=== PATIENT | female | born 1950 | race Caucasian/White ===

== ENCOUNTER 2016-06-03 11:37 | Inpatient (IN) | payer OTHER ==
--- NOTE | 2016-05-23 15:34 | RAD ---
INDICATION: Preoperative imaging in a patient with a history of asthma COMPARISON: Chest x-ray dated August 28, 2003 TECHNIQUE: PA and lateral views of the chest were obtained. FINDINGS: The heart and mediastinum are normal in size and contour. The lungs are grossly clear. There is no evidence of large pleural effusion. Visualized bones are normal for the patient's age. There is no radiographic evidence of free air beneath the diaphragm IMPRESSION: No radiographic evidence of acute cardiopulmonary disease.
--- NOTE | 2016-05-26 00:27 | HP ---
HISTORY AND PHYSICAL: DATE OF SURGERY/ADMISSION: 06/03/16 DATE OF OFFICE VISIT: 05/23/16 ATTENDING SURGEON: Ivanna Landrum MD PROCEDURE: Left total knee arthroplasty. CHIEF COMPLAINT: Left knee pain. HISTORY OF PRESENT ILLNESS: A pleasant 66-year-old female who presents today for history and physical examination prior to undergoing a left knee arthroplasty. In brief, the patient states that she has had pain in her bilateral knees, left worse than right for several years. She has failed conservative treatment including anti-inflammatories, pain medications, steroid injections, physical therapy, and brace wear, has elected to undergo a left total knee arthroplasty by Dr. Ivanna Landrum on 06/03/16. PAST MEDICAL HISTORY: 1. Rotator cuff repair on the right. 2. Foot fracture. 3. Chronic back pain with herniated disk. 4. Insomnia. 5. Depression. 6. Obesity. 7. History of varicose veins. 8. Asthma. PAST SURGICAL HISTORY: 1. Rotator cuff repair. 2. Bilateral knee arthroplasty. 3. Vein stripping on the right leg. 4. Hand surgery, unspecified type. MEDICATIONS: 1. Gabapentin 300 mg 1 tablet by mouth 3 times a day. 2. Ambien 12.5 mg 1 tablet q.h.s. as needed. 3. Pristiq 50 mg 1 tablet by mouth daily. 4. Bupropion ER. ALLERGIES: No known drug allergies. FAMILY MEDICAL HISTORY: Positive for colon cancer, diabetes, and hypertension. SOCIAL HISTORY: The patient owns . Denies tobacco, alcohol, and recreational use. Ambulates independently. Lives with [id number] and grandson. REVIEW OF SYSTEMS: General: Negative for fevers, chills, or night sweats. Difficulty with anesthesia in the past, extreme nausea and vomiting. HEENT: Negative for headache, lightheadedness, or syncopal episodes. Integument: Negative for abrasions, lesions, open wounds. Cardiothoracic: Negative for chest pain, palpitations, or edema. No history of hypertension. Pulmonary: Negative for shortness of breath with exertion, chronic cough, or COPD. History of asthma. No recent excerebration. GI: Negative for nausea, vomiting , constipation, diarrhea, or GERD. : Negative for nocturia, urinary frequency, urgency, kidney problems, or UTI. Musculoskeletal: Positive for bilateral knee pain, left worse than right. Positive for chronic lower back pain. Neurologic: Positive for paresthesias in the left ankle. Negative for stroke, seizure, or epilepsy. Endocrine: Negative for diabetes or thyroid disease. Hematologic: Negative for easy bruising, anemia, or excessive bleeding. No history of DVT. Infectious Disease: No history of MRSA, hepatitis C, or HIV. PHYSICAL EXAMINATION GENERAL: Well appearing, in no acute distress, alert and oriented, 66-year-old female, in no acute distress. VITAL SIGNS: Blood pressure 138/82, pulse rate 85, respirations are 15. HEENT: Normocephalic, atraumatic. EOMI. NECK: Supple. Full range of motion. CARDIAC: Regular rate and rhythm. No murmurs, gallops, or rubs. PULMONARY: Lungs are clear to auscultation bilaterally. No crackles, rhonchi, or wheezes. ABDOMEN: Soft, nontender, nondistended, normoactive bowel sounds. No organomegaly. Negative CVA tenderness bilaterally. NEUROLOGIC: Alert and oriented x3. Cranial nerves are grossly intact. Sensation intact to light touch over bilateral calves. MUSCULOSKELETAL: Left knee with decreased range of motion to 110 degrees. Antalgic gait favoring the left side. Posterior and tibial pulses 2+ bilaterally. No edema noted in bilateral lower extremities. No open wounds or sores. DIAGNOSTIC STUDIES/LAB DATA: X-ray of bilateral knees performed on 04/16/16 showed moderate degenerative changes of bilateral knees, more advanced on the right than the left. IMPRESSION: The patient is a very pleasant 66-year-old female, who presents today for history and physical examination prior to undergoing an elective left knee arthroplasty. The patient underwent preoperative testing by Dr. Torres at [place] on 05/22/16. I do not have records for this, but the patient states that she was seen and was cleared for surgery. She will have labs, chest x-ray , urinalysis, and EKG performed today as the preadmission testing. The patient wishes to go home after her procedure and have a good support system with her [id number] at home. Medications for postoperative pain including Coumadin , Tylenol No. 3, and Colace were sent to the patient's pharmacy and the surgery was reviewed as well as the risks and complications and the patient signed the surgical consent form. She had no further questions or concerns; however, will call us if any do arise. JEROME ANDUJAR [id number]/[facility] #: [id number] KARO
[~2016-06-03 11:37] MED LIST: Buffered Lidocaine 1% SYR 3ML* 3 ML/SYR SYRINGE INTRADERM ONE; Bupivacaine 0.5% SDV PF* 30 ML VIAL ONE; Dexamethasone IV* 4 MG/ML 1 ML (4 MG) IV SLOW PU ONE; Dexmedetomidine* 200 MCG/2 ML 2 ML VIAL ONE; Famotidine IV* 10 MG/ML 2 ML (20 mg) IV ONE; Midazolam* 1 MG/ML 5 ML VIAL (5 MG) ONE; Morphine PF AMP (0.5MG/ML)* 5 MG/10 ML AMP ONE; Propofol* 10 MG/ML 20 ML BTL IV PUSH ONE; ROPIVACAINE 5 MG/ML 30 ML BTL (0.5%) ONE; fentaNYL* 50 MCG/ML 2 ML VIAL (100 MCG VIAL) ONE
[2016-06-03] MEDS ORDERED: Famotidine IV* 10 MG/ML 2 ML (20 mg) ONE (11:56)
[2016-06-03] MEDS ORDERED: ceFAZolin 2 GM PREMIX (*) 2 GM/50 ML BAG IVPB ONE (11:57)
[2016-06-03] MEDS ORDERED: Buffered Lidocaine 1% SYR 3ML* 3 ML/SYR SYRINGE ONE (11:57)
[2016-06-03] MEDS ORDERED: Dexamethasone IV* 4 MG/ML 1 ML (4 MG) ONE (11:57)
[2016-06-03] MEDS ORDERED: Ondansetron INJ* 2 MG/ML VIAL IV PRN ×2 (12:32→16:45)
[2016-06-03] MEDS ORDERED: Nalbuphine* 20 MG/ML 1 ML VIAL IV PRN ×2 (12:32→16:45)
[2016-06-03] MEDS ORDERED: PROCHLORPERAZINE INJ 5 MG/ML 2 ML VIAL IV PRN ×2 (12:32→16:45)
[2016-06-03] MEDS ORDERED: fentaNYL* 50 MCG/ML 2 ML VIAL (100 MCG VIAL) IV PRN (12:32)
[2016-06-03] MEDS ORDERED: DiMENhydriNATE IV* 50 MG/ML VIAL IV PUSH PRN ×2 (12:32→16:45)
[2016-06-03] MEDS ORDERED: Scopolamine 1.5 mg* PATCH ONE (12:36)
[2016-06-03] MEDS ORDERED: Bupivacaine 0.5% W/EPI SDV* 30 ML VIAL ONE (12:59)
[2016-06-03] MEDS ORDERED: Scopolamine PATCH Remove* 1 NOTE MISC PATCH OFF SCH (14:00)
[2016-06-03] MEDS ORDERED: Acetaminophen TAB* 325 MG PO PRN (15:53)
[2016-06-03] MEDS ORDERED: Magnesium Hydroxide LIQ* 30 ML UDC PO PRN (15:53)
[2016-06-03] MEDS ORDERED: Polyethylene Glycol 3350* 17 GM PACKET PO PRN (15:53)
[2016-06-03] MEDS ORDERED: Bisacodyl SUPP* 10 MG SUPP PR PRN (15:53)
[2016-06-03] MEDS ORDERED: Phenylephrine IV* 40 MCG/ML 10 ML SYRINGE ONE (16:32)
[2016-06-03] MEDS ORDERED: diPHENhydraMINE IV* 50 MG/ML 1 ml VIAL (BENADRYL) IV PRN (16:45)
[2016-06-03] MEDS ORDERED: Naloxone* 0.4 MG/ML 1 ML VIAL IV PRN (16:45)
--- NOTE | 2016-06-03 17:06 | RAD ---
INDICATION: Left knee arthroplasty COMPARISON: April 16, 2016 TECHNIQUE: A portable 2 view examination was performed. FINDINGS: There is left knee arthroplasty. Tibial and femoral components appear well seated. There is a cooling jacket in place. IMPRESSION: POSTOPERATIVE LEFT KNEE ARTHROPLASTY
[2016-06-03] MEDS ORDERED: Nalbuphine* 20 MG/ML 1 ML VIAL ONE (18:53)
[2016-06-03] MEDS: Docusate CAP* 100 MG PO SCH (20:31)
[2016-06-03] MEDS: Gabapentin CAP(*) 300 MG PO SCH (20:32)
[2016-06-03] MEDS: Scopolamine 1.5 mg* PATCH TRANSDERM SCH (20:33)
[2016-06-03] MEDS: ceFAZolin 1 GM in Dextrose (*) 1 GM/50 ML BAG IVPB SCH (20:37)
[2016-06-03] MEDS ORDERED: Warfarin TAB(*) 6 MG PO ONE (21:00)
[2016-06-03] MEDS: oxyCODONE/Acetamin 5/325 MG* TAB PO PRN ×2 (22:32→23:23)
[2016-06-04] MEDS: Zolpidem TAB* 5 MG PO SCH ×2 (00:44→23:30)
[2016-06-04] MEDS: oxyCODONE/Acetamin 5/325 MG* TAB PO PRN ×4 (03:29→19:23)
[2016-06-04] MEDS: ceFAZolin 1 GM in Dextrose (*) 1 GM/50 ML BAG IVPB SCH ×2 (04:55→13:03)
[2016-06-04] MEDS ORDERED: diPHENhydraMINE IV* 50 MG/ML 1 ml VIAL (BENADRYL) IV PRN (06:00)
[2016-06-04] MEDS ORDERED: oxyCODONE/Acetamin 5/325 MG* TAB PO PRN (06:00)
[2016-06-04] MEDS ORDERED: diPHENhydraMINE PO* 25 MG PO PRN (06:00)
[2016-06-04] MEDS ORDERED: Morphine INJ* 2 MG/ML 1 ML CARPUJECT IV PRN (06:00)
[2016-06-04] MEDS ORDERED: Ondansetron TAB* 4 MG PO PRN (06:00)
[2016-06-04] MEDS ORDERED: Ondansetron INJ* 2 MG/ML VIAL IV PRN (06:00)
[2016-06-04] MEDS ORDERED: oxyCODONE TAB* 5 MG TAB PO PRN (06:00)
[2016-06-04 06:14] LABS: Hematocrit 32 % (35-47); Hemoglobin 10.4 g/dl (12.0-16.0)
[2016-06-04 06:31] LABS: BUN/Creatinine Ratio 14.9 (8-20); EGFR Non-African American 88.6 (>60)
--- NOTE | 2016-06-04 07:06 | PN ---
Progress Note - Progress Note SOAP: Subjective: Pt. reports pain is controlled overnight. Objective: LLE - drain removed, tip intact, distally nvi with +df/pf, full sens lt, 2+ dp pulse. Vital Signs: Temp Pulse Resp BP Pulse Ox 97.6 F 62 18 98/55 100 06/04/16 03:41 06/04/16 03:41 06/04/16 05:45 06/04/16 03:41 06/04/16 03:41 Laboratory Results - last 24 hr 06/04/16 06/04/16 06/04/16 06:07 06:07 06:07 Hgb 10.4 L Hct 32 L INR (Anticoag Therapy) 1.01 Sodium 137 Potassium 4.0 Chloride 105 Carbon Dioxide 31 Anion Gap 1 L BUN 10 Creatinine 0.67 Est GFR ( Amer) 114.0 Est GFR (Non-Af Amer) 88.6 BUN/Creatinine Ratio 14.9 Glucose 112 H Calcium 8.0 L Assessment: 66 yo F pod 1 s/p LTKA Plan: wbat LLE - pt/ot drain removed stanley out this AM 8 mg coumadin tonight, cont. lovenox
[2016-06-04] MEDS: Vitamin THERAPEUTIC TAB PO SCH (08:16)
[2016-06-04] MEDS: Docusate CAP* 100 MG PO SCH ×2 (08:16→21:40)
[2016-06-04] MEDS ORDERED: Pneumococcal *Vac Polyvalent 0.5 ML VIAL IM ONE (09:00)
[2016-06-04] MEDS ORDERED: Influenza VAC *QUAD* 2016-17* 0.5 ML SYRINGE IM ONE (09:00)
--- NOTE | 2016-06-04 11:17 | OP ---
DATE OF OPERATION: 06/03/16 - ROOM #338 DATE OF : 54 SURGEON: Ivanna Landrum MD JIG OPERATOR: JEROME Ruiz ANESTHESIOLOGIST: Dr. Cheng. ANESTHESIA: Spinal. PRE-OP DIAGNOSIS: Severe end-stage degenerative osteoarthritis of the left knee joint. POST-OP DIAGNOSIS: Severe end-stage degenerative osteoarthritis of the left knee joint. OPERATIVE PROCEDURE: Left total knee arthroplasty. TOURNIQUET TIME: 50 minutes. ESTIMATED BLOOD LOSS: 200 cc. COMPLICATIONS: None. SPECIMENS: Bone and cartilage from the left knee joint sent to pathology. HARDWARE: [employer] cemented total knee hardware. Two packages of simplex bone cement. For the femur, a size 4 left posterior stabilized Legion Oxinium femoral component. For the tibia, a size 3 left tibial baseplate. For the insert, a 13 mm posterior stabilized articular insert. For the patella, a 35-mm 3-peg all- poly patella. BRIEF HISTORY/INDICATIONS: Ms. Schmidt is a 66-year-old female with years of increasingly severe left knee pain. Radiographs confirmed [id number]-[id number] arthritis. She failed conservative treatment with antiinflammatories, pain medications, intraarticular injections, and physical therapy. She elected to undergo a left total knee arthroplasty due to continued pain and decreased quality of life. Informed consent was obtained from the patient. She understands the risks of the procedure included, but were not limited to bleeding, infection, damage to nearby structures, continued pain, need for further surgery, intraoperative fracture, nerve palsy, hardware failure or loosening, stroke, heart attack, blood clot, and . She wished to proceed. INTRAOPERATIVE FINDINGS: Intraoperatively, the patient was noted to have severe degeneration of the medial, lateral, and patellofemoral cartilage. DESCRIPTION OF PROCEDURE: Ms. Schmidt was identified in the preanesthesia unit. Her left lower extremity was marked as the correct operative site. Informed consent was signed and placed in the chart. The patient was taken to the operating room and placed under spinal anesthesia without difficulty. A Henry catheter was placed. Thigh high tourniquet was placed on the left side. Left lower extremity was prepped and dapped in the usual sterile fashion. Preop time -out was made to correctly identify the patient side and site. Appropriate perioperative antibiotics were given within 1 hour of incision. A 12 cm midline incision was made with a skin blade and carried down to the extensor mechanism. A new 10 blade was used to make a standard medial parapatellar arthrotomy. Patella was subluxed laterally. Electrocautery was used to subperiosteally elevate the soft tissue off the superomedial tibia to the mid sagittal plane. The knee was flexed up. The anterior horn of the lateral meniscus and ACL were sharply released. A drill was used to enter the distal femur. Intramedullary distal femoral cutting guide was pinned on the distal femur. Oscillating saw was used to make the appropriate distal femoral cut. External rotation guide was pinned on the distal femur and the femur was sized to a size 4. Size 4 multi-cutting gig was pinned on the distal femur. Oscillating saw was used to make the appropriate 4 chamfer cuts. All bony fragments were carefully removed. The PCL was completely released. The tibia was subluxed anteriorly. Extramedullary tibial cutting guide was pinned on the proximal tibia. An oscillating saw was used to make the proximal tibial cut perpendicular to the mechanical access of the tibia. Proximal tibial bone was carefully removed. The knee was brought out into full extension. A spacer block had excellent fit with good mediolaterally ligamentous balancing. Flexion and extension gaps were well balanced. The knee was flexed up. Lamina heel edge inker machine was placed both medially and laterally. Any remaining meniscus were carefully removed using electrocautery. Posterior femoral condyles had any osteophytes removed carefully with curved osteotome and curette. Tibial tray and drop isiah once again confirmed satisfactory proximal tibial cut. A size 4 left femoral component trial was carefully impacted on to the distal femur. Box for the posterior stabilized implant was prepared using a reamer and box cut osteotome. A size 3 tibial tray trial and a 11 mm insert trial was placed. The knee was taken through range of motion and noted to have full extension to 130 degrees of flexion with good patello-femoral tracking. The patellar was everted. A 9 mm of patellar bone and cartilage were carefully removed. Patella was sized to a size 35. Three peg holes were drilled through the size 35 guide. 35 trial patella was placed and the knee was taken through a range of motion. There was excellent patellofemoral tracking. All trials were carefully removed. The tibia was subluxed anteriorly and sized to a size 3. Proximal tibia was prepared using a keel punch. All bony cut surfaces were copiously irrigated with sterile saline and dried. Final implants were cemented into place using 2 packages of simplex bone cement starting with the tibia, followed by the femur, and lastly the patellar. The knee was brought into full extension with a 13-mm insert trial while the cement fully cured. Tourniquet was turned down at 50 minutes. Once the cement had fully cured, the knee was copiously irrigated. The insert trial was removed. Posterior capsule was checked for any bleeding or excess cement. Final insert chosen was a 13-mm posterior stabilized articular insert. This was locked into position on the tibial tray without difficulty. Stability of the insert was checked and rechecked and noted to be stable. Final range of motion was full extension to 130 degrees of flexion. The knee was once again copiously irrigated with sterile saline. The extensor mechanism was closed over a medium Hemovac drain using interrupted #1 Vicryls. The rest of the incision was closed in a layered fashion using 0 and 2-0 Vicryls. Skin was closed using running 3-0 nylon suture. The skin was covered with Xeroform, 4x4's, and Webril. Luis Angel wrap and cold pack were placed over this. The patient's anesthesia was reversed without difficulty. She was taken to the PACU in stable condition. Intended weightbearing will be weightbearing as tolerated. Intended DVT prophylaxis will be Coumadin with a Lovenox bridge. [id number]/[facility] #: [id number] KARO
[2016-06-04] MEDS: oxyCODONE SR TAB(*) 20 MG TAB.SR PO SCH (16:27)
[2016-06-04] MEDS ORDERED: Warfarin TAB(*) 4 MG PO ONE (17:00)
[2016-06-04] MEDS: Enoxaparin(*) 30 MG/0.3 ML SYR SUBCUT SCH (17:48)
[2016-06-04] MEDS ORDERED: HYDROmorphone INJ* 1 MG/ML CARPUJECT SYRINGE ONE (19:35)
[2016-06-04] MEDS ORDERED: HYDROmorphone INJ* 1 MG/ML CARPUJECT SYRINGE IV PRN (19:54)
[2016-06-04] MEDS: Ketorolac INJ* 15 MG/ML 1 ML VIAL IV PUSH SCH (20:04)
[2016-06-04] MEDS: Gabapentin CAP(*) 300 MG PO SCH (21:39)
[2016-06-05] MEDS: Ketorolac INJ* 15 MG/ML 1 ML VIAL IV PUSH SCH ×3 (01:52→14:47)
[2016-06-05] MEDS: oxyCODONE SR TAB(*) 20 MG TAB.SR PO SCH ×2 (03:57→16:22)
[2016-06-05 06:47] LABS: Hematocrit 33 % (35-47); Hemoglobin 11.3 g/dl (12.0-16.0)
[2016-06-05] MEDS: oxyCODONE/Acetamin 5/325 MG* TAB PO PRN ×4 (07:25→23:45)
[2016-06-05] MEDS: Vitamin THERAPEUTIC TAB PO SCH (08:43)
[2016-06-05] MEDS: Docusate CAP* 100 MG PO SCH ×2 (08:43→21:33)
--- NOTE | 2016-06-05 09:15 | PN ---
Progress Note - Progress Note SOAP: Subjective: [Patient seen and evaluated at bedside. She reports having a "bad night" due to increased knee pain. Better this morning with Percocet and IV Torodol. Denies dizziness, chest pain or shortness of breath. ] Objective: [] Laboratory Results - last 24 hr 06/05/16 06/05/16 06:19 06:19 Hgb 11.3 L Hct 33 L INR (Anticoag Therapy) 1.30 H Vital Signs Temp 100.8 F 06/05/16 07:31 Pulse 104 06/05/16 07:31 Resp 17 06/05/16 07:31 BP 168/88 06/05/16 07:31 Pulse Ox 94 06/05/16 07:31 Intake & Output 06/04/16 06/05/16 06/05/16 18:59 06:59 18:59 Intake Total 1040 600 Output Total 1000 1100 700 Balance 40 -500 -700 Intake: Oral 1040 600 Output: Urine 700 1100 700 Henry 300 Other: # Bowel Movements 1 Estimated Stool Amount Small Left knee dressing intact, cryo applied calf non tender and soft active DF/PF sensation intact 2+ DP, PT pulses Assessment: [S/P Left total knee arthroplasty POD#2] Plan: [ Pain management continue PT/OT WBAT left knee 8 mg coumadin today Dressing to be changed this afternoon by Dr. Landrum Possible discharge home 06/06]
[2016-06-05 12:58] LABS: Hematocrit 34 % (35-47); Hemoglobin 11.2 g/dl (12.0-16.0); Mean Corpuscular HGB Conc 33 g/dl (31-36); Mean Corpuscular Hemoglobin 30 pg (27-31); Mean Corpuscular Volume 90 fL (80-97); Mean Platelet Volume 8 um3 (7.4-10.4); Red Cell Distribution Width 14 % (10.5-15); White Blood Count 10.8 10^3/ul (3.5-10.8)
[2016-06-05 12:59] LABS: Add Diff/Slide Review? Slide Review Added; Comments Flag Yes
--- NOTE | 2016-06-05 13:01 | PN ---
Progress Note - Progress Note Note: Patient seen due to elevated temperature to 101.8 despite being on Percocet. Patient without complaint other than being chilled. No SOB. On examination, crackles/ wheezing in LLL. CXR ordered, U/A. Follow up with results.
[2016-06-05 13:43] LABS: Urine Bilirubin Negative (Negative); Urine Glucose Negative (Negative); Urine Nitrite Negative (Negative)
--- NOTE | 2016-06-05 13:48 | RAD ---
INDICATION: Cough and fever COMPARISON: 05/23/2016 TECHNIQUE: AP seated and lateral views were obtained. FINDINGS: Bones/Soft Tissues: There are no acute bony findings. Cardiomediastinal: The cardiomediastinal silhouette is normal. Lungs: There are no infiltrates. Pleura: There are no pleural effusions. Other: None IMPRESSION: NO ACTIVE DISEASE
[2016-06-05] MEDS ORDERED: Warfarin TAB(*) 4 MG PO ONE (17:00)
[2016-06-05] MEDS: Enoxaparin(*) 30 MG/0.3 ML SYR SUBCUT SCH (17:19)
[2016-06-05] MEDS: Gabapentin CAP(*) 300 MG PO SCH (21:33)
[2016-06-06] MEDS: Zolpidem TAB* 5 MG PO SCH (00:30)
[2016-06-06] MEDS: oxyCODONE SR TAB(*) 20 MG TAB.SR PO SCH ×2 (04:07→16:27)
[2016-06-06 07:42] LABS: Hematocrit 34 % (35-47); Hemoglobin 11.2 g/dl (12.0-16.0)
[2016-06-06] MEDS: Docusate CAP* 100 MG PO SCH (08:25)
[2016-06-06] MEDS: Vitamin THERAPEUTIC TAB PO SCH (08:25)
--- NOTE | 2016-06-06 08:49 | PN ---
Progress Note - Progress Note SOAP: Subjective: POD #3 Left TKA. States that she is doing better today, had a lot of pain yesterday. Denies CP/SOB or calf pain. Objective: Vitals: Temp Pulse Resp BP Pulse Ox 100.2 F 109 16 131/75 96 06/06/16 07:43 06/06/16 07:43 06/06/16 07:43 06/06/16 07:43 06/06/16 07:43 Gen: A&O x3, NAD at rest laying in bed LLE: Incision C/D/I. Mild edema and ecchymosis, no erythema Laboratory Results - last 24 hr 06/05/06/05/06/06/16 12:35 13:30 07:13 WBC 10.8 RBC 3.80 L Hgb 11.2 L 11.2 L Hct 34 L 34 L MCV 90 MCH 30 MCHC 33 RDW 14 Plt Count 221 MPV 8 Neut % (Auto) 70.5 Lymph % (Auto) 12.9 L [place] % (Auto) 16.5 H Eos % (Auto) 0 Baso % (Auto) 0.1 Absolute Neuts (auto) 7.6 Absolute Lymphs (auto) 1.4 Absolute Monos (auto) 1.8 H Absolute Eos (auto) 0 Absolute Basos (auto) 0 Absolute Nucleated RBC 0.01 Nucleated RBC % 0.1 INR (Anticoag Therapy) Urine Color Yellow Urine Appearance Clear Urine pH 7.0 Ur Specific [place] 1.009 L Urine Protein Negative Urine Ketones Trace H Urine Blood Negative Urine Nitrate Negative Urine Bilirubin Negative Urine Urobilinogen Negative Ur Leukocyte Esterase Negative Urine Glucose Negative 06/06/16 07:13 WBC RBC Hgb Hct MCV MCH MCHC RDW Plt Count MPV Neut % (Auto) Lymph % (Auto) [place] % (Auto) Eos % (Auto) Baso % (Auto) Absolute Neuts (auto) Absolute Lymphs (auto) Absolute Monos (auto) Absolute Eos (auto) Absolute Basos (auto) Absolute Nucleated RBC Nucleated RBC % INR (Anticoag Therapy) 1.65 H Urine Color Urine Appearance Urine pH Ur Specific [place] Urine Protein Urine Ketones Urine Blood Urine Nitrate Urine Bilirubin Urine Urobilinogen Ur Leukocyte Esterase Urine Glucose Assessment: POD #3 Left TKA Plan: D/C home today INR 1.65, Coumadin 4mg 06/06, 06/07, 06/08 F/u with Dr. Landrum 10-14 days
[2016-06-06] MEDS ORDERED: Iohexol 350* (CONTRAST) 500 ML MDV IV SCH (12:31)
[2016-06-06 12:34] LABS: Hematocrit 33 % (35-47); Hemoglobin 10.9 g/dl (12.0-16.0); Mean Corpuscular HGB Conc 33 g/dl (31-36); Mean Corpuscular Hemoglobin 29 pg (27-31); Mean Corpuscular Volume 89 fL (80-97); Mean Platelet Volume 8 um3 (7.4-10.4); Red Blood Count 3.72 10^6/ul (4.0-5.4); Red Cell Distribution Width 14 % (10.5-15); White Blood Count 12.1 10^3/ul (3.5-10.8)
[2016-06-06 12:51] LABS: Albumin 3.2 g/dL (3.2-5.2); BUN/Creatinine Ratio 15.7 (8-20); C Reactive Protein 181.08 mg/L (< 5.00); Calcium 8.4 mg/dL (8.6-10.3); EGFR African American 108.3 (>60); EGFR Non-African American 84.2 (>60); Globulin 3.3 g/dL (2-4); Potassium 3.7 mmol/L (3.5-5.0); Total Bilirubin 0.3 mg/dL (0.2-1.0); Total Protein 6.5 g/dL (6.4-8.9)
[2016-06-06] MEDS: oxyCODONE/Acetamin 5/325 MG* TAB PO PRN (13:27)
[2016-06-06] MEDS: Scopolamine 1.5 mg* PATCH TRANSDERM SCH (13:29)
--- NOTE | 2016-06-06 14:08 | RAD ---
Indication: Evaluate for PE. Shortness of breath. CTA of the chest was performed after IV contrast administration. Approximately Administered 76.0 ml of OMNIPAQUE 350 mgi/ml was given according to hospital protocol. Coronal and sagittal reconstructed images were obtained. The pulmonary arterial tree is well opacified. There are no filling defects present to suggest pulmonary embolus. The trachea and major bronchi appear patent. The lung pelletier demonstrate some atelectasis in the left lung base. No alveolar consolidation is noted. No focal nodules are identified. The heart demonstrates no pericardial effusion. There is no mediastinal or hilar adenopathy noted. The aorta demonstrates no evidence of aortic dissection. No aneurysmal dilatation of the thoracic aorta is noted. Visualized abdominal organs demonstrates diffuse decrease in density consistent with hepatic steatosis. The bony structures demonstrate no compression fracture. Multilevel degenerative disc disease is noted. IMPRESSION: NO EVIDENCE OF PULMONARY EMBOLI IS NOTED. HEPATIC STEATOSIS. SOME SCARRING OR ATELECTASIS IN THE LEFT LUNG BASE.
[2016-06-06] MEDS: Enoxaparin(*) 30 MG/0.3 ML SYR SUBCUT SCH (16:27)
[2016-06-06 16:30] VITALS: BP 117/64
--- NOTE | 2016-06-06 16:55 | CONS ---
ADDENDUM NOW INCLUDED ON THIS REPORT MEDICAL CONSULTATION REPORT: DATE OF CONSULT: 06/03/16 DATE OF DICTATION: 06/06/16 PRIMARY CARE PROVIDER: Dr. Didi Torres. REQUESTING PROVIDER: Dr. Ivanna Landrum. CONSULTING PROVIDER: JEROME Rivers SUPERVISING PHYSICIAN: Dr. Sravani De Paz. CHIEF COMPLAINT: Status post left total knee arthroplasty, now developing fever and tachycardia. HISTORY OF PRESENT ILLNESS: This is a pleasant 66-year-old female with a rather benign past medical history including mild intermittent asthma, chronic back pain, and chronic knee pain. The patient underwent elective total knee arthroplasty on 06/03/16 and is currently postop day #3. Starting yesterday morning, the patient has developed intermittent fevers and tachycardia with heart rates in the low 100s. She states she has been quite fatigued, but also reports she has not been sleeping very well with all of the nursing interventions. She does note that she developed a cough starting yesterday, but denies dyspnea nor has she been hypoxic. She has had a poor appetite and intermittent nausea. She states her pain control is fairly good, at least while at rest in her knee. She denies any abdominal pain, vomiting, or diarrhea. She denies any personal or family history of blood clots or known clotting disorders. PAST MEDICAL HISTORY: 1. Chronic back pain 2. Chronic knee pain secondary to osteoarthritis and mild intermittent asthma. PAST SURGICAL HISTORY: 1. Rotator cuff repair. 2. Right knee arthroplasty. 3. Vein stripping. 4. Unspecified hand surgery. HOME MEDICATIONS: 1. Gabapentin 300 mg p.o. t.i.d. 2. Ambien 12.5 mg tablet at bedtime as needed for insomnia. 3. Pristiq 50 mg p.o. daily. 4. Extended-release bupropion, dose not listed. FAMILY HISTORY: No history of clotting disorders. SOCIAL HISTORY: The patient lives with her tuirdqts-iv-phs and grandson. No smoking history or regular alcohol consumption. Her plans are to return home following her hospital stay as opposed to rehab. PHYSICAL EXAM: Most recent vital signs from 8 o'clock this morning shows a temperature of 100.2 degrees Fahrenheit, pulse 109 beats per minute, respiratory rate 16 per minute, oxygen saturation 96% on room air, and blood pressure 131/75 mmHg. General: This is a very pleasant 66-year-old female who appears fatigued but is in no acute distress. She has an occasional productive cough during her interview. HEENT: Head is normocephalic, atraumatic with moist mucous membranes. Cardiovascular: Heart has regular rate and rhythm without murmurs, rubs, or gallops. Respiratory: There is some focal rhonchi appreciated in the left anterior lung pelletier, this is where it is most pronounced but faintly appreciated in left posterior upper lobe region. Remainder of lung pelletier is clear without wheezes or crackles. Abdomen: Abdomen is soft and nontender to palpation. Extremities: No significant edema and pulses are intact. Skin: Incision was not fully examined but skin surrounding shows no significant erythema. No other rashes or lesions appreciated. Psych: The patient is alert and appropriately oriented. DIAGNOSTIC STUDIES/LAB DATA: Labs from today include a hemoglobin of 11.2 g/dL , which is fairly stable since surgery and INR up to 1.65. Urinalysis from yesterday is unremarkable. Imaging: Chest x-ray, 06/05/16, shows no acute infiltrate or other acute process. ASSESSMENT AND PLAN: This is a 66-year-old female with a rather uneventful past medical history, who is now postop day 3 from status post left total knee arthroplasty by Dr. Landrum. She developed fever and tachycardia approximately 24 hours ago. Hospitalist group has been asked to consult in regards to this change in status. 1. Fever and tachycardia - based on lung exam findings most likely this represents a pneumonia. The patient is not hypoxic; however, a CTA of her chest was ordered. Due to her postop status, D-dimer would not be informative to help with evaluating for the presence of pulmonary embolism. The CTA also help to further illustrate lung parenchyma and evaluate for an occult infiltrate that was not appreciated on yesterday's chest x-ray. Also, ordered a CBC, comprehensive metabolic panel, CRP, procalcitonin, and blood cultures all of which are pending at this time. Urinalysis from yesterday was unremarkable. This is not need to be repeated as the patient is not complaining of any urinary complaints. 2. Status post left total knee arthroplasty - surgical management per orthopedic group - my understanding is that she is appropriate for discharge from the hospital in terms of meeting her postoperative goals for ambulation and pain control. 3. Chronic back pain - her home medications have been continued. 4. Mild intermittent asthma - no evidence of exacerbation in this case. It sounds to be mostly allergy mediated from her description. 5. Code status - the patient is full code. 6. Healthcare proxy is unknown. 7. DVT prophylaxis is ordered per Orthopedic Surgery, it appears that the patient is receiving Lovenox 30 mg subcu daily and has been started on Coumadin and is nearly therapeutic. DISPOSITION: Awaiting results from CTA and lab studies as described above. This will help to further distinguish appropriate disposition whether she can be discharged home today or requires additional hospital stay. We will plan to discuss plan with Dr. Landrum later this afternoon after results are available. JEROME RIVERS ADDENDUM: DATE OF CONSULTATION: 06/03/16 Reviewed CBC, comprehensive metabolic panel, CRP, and procalcitonin as well as CTA completed earlier today. The patient does have a cqko-do-mtyhvaxv leukocytosis with a white blood cell count of 12,100. She does not have a left shift, however. Her comprehensive metabolic panel is unremarkable. Her CRP is significantly elevated at 181, which is not terribly surprising being so recently postop. Her procalcitonin; however, is negative at 0.2. Her CTA shows no evidence of PE or significant infiltrate. She does have a small amount of atelectasis. Reviewed these findings with Dr. Landrum. Communicated that there is no obvious source of infection. Atelectasis may be a source of her fevers and tachycardia. Dr. Landrum feels comfortable discharging her at this time, suggested that she be aggressive with her incentive spirometer over the weekend and she will follow up with Dr. Landrum in her office early next week. There is no indication for empiric antibiotics and the patient does appear stable for discharge at this time. JEROME RIVERS [id number]/[facility] #: [id number]/CPS #: [id number] KARO
--- NOTE | 2016-06-06 21:00 | CONS ---
CONSULTATION NOTE: ADDENDUM: DATE OF CONSULTATION: 06/03/16 Reviewed CBC, comprehensive metabolic panel, CRP, and procalcitonin as well as CTA completed earlier today. The patient does have a cyvj-jx-yjvddivw leukocytosis with a white blood cell count of 12,100. She does not have a left shift, however. Her comprehensive metabolic panel is unremarkable. Her CRP is significantly elevated at 181, which is not terribly surprising being so recently postop. Her procalcitonin; however, is negative at 0.2. Her CTA shows no evidence of PE or significant infiltrate. She does have a small amount of atelectasis. Reviewed these findings with Dr. Landrum. Communicated that there is no obvious source of infection. Atelectasis may be a source of her fevers and tachycardia. Dr. Landrum feels comfortable discharging her at this time, suggested that she be aggressive with her incentive spirometer over the weekend and she will follow up with Dr. Landrum in her office early next week. There is no indication for empiric antibiotics and the patient does appear stable for discharge at this time. JEROME RIVERS [id number]/[facility] #: [id number] KARO
--- NOTE | 2016-06-07 08:25 | PN ---
DISCHARGE SUMMARY: DATE OF ADMISSION: 06/03/16 DATE OF DISCHARGE: 06/06/16 ADMITTING DIAGNOSIS: Severe end-stage osteoarthritis of the left knee. DISCHARGE DIAGNOSIS: Severe end-stage osteoarthritis of the left knee, status post left total knee arthroplasty. SECONDARY DIAGNOSES: 1. Depression. 2. Asthma. 3. Chronic back pain. HISTORY OF PRESENT ILLNESS: Ms. Schmidt is a 66-year-old female who has been followed by Dr. Landrum fo r ongoing trouble with her left knee. This has been going on for several years and she failed a con servative treatment to include antiinflammatories, pain medications, steroid injection, physical the rapy, and bracing. She elected to undergo a left total knee arthroplasty. HOSPITAL COURSE: On 06/03/16, the patient was admitted to the [facility] and underwent a successful left total knee arthroplasty by Dr. Landrum. She recovered briefly in the postanesthesia care unit and was transferred to the Short- Stay Surgical Unit in stable condition. On postop day 1 , the patient's pain was controlled with IV and oral pain medication. H and H was 10.4 and 32. INR was 1.01 with 8 mg of Coumadin previously. She was able to get out of bed with the assistance of p hysical therapy and transferred to a chair. She was also able to ambulate a short distance with the use of a rolling walker. On postop day 2, the patient complained of increased pain as her nerve bl ocks were off, which did require oral and IV pain medication again. She was able to participate wit h physical therapy. On postop day 2, however, she was limited by pain again. On postop day 2 blood work showed an H and H of 11.3 and 33. INR was 1.30. The patient did sudden increase in temperatu re on postop day 2 with a T-max of 102.8. Urinalysis was done, which was negative. Chest x-ray was also obtained, which was negative for any pneumonia. On postop day 3, the patient states that she w as feeling better and pain was more well controlled with oral pain medications. H and H was 10.9 an d 33. INR was 1.65. The patient was found to have a white count of 12.1 on postop day 3 and contin ued to have a fever and was slightly tachycardic. For this reason, the hospitalist was consulted and the patient underwent CT angiogram of the chest that was negative for pulmonary embolism. On posto p day 3, the patient was found stable for discharge home. DISCHARGE MEDICATIONS: The patient will go home with: 1. Percocet 5/325 mg 1 to 2 tabs p.o. q.4-6 hours p.r.n. pain. 2. Oxycodone 20 mg extended release 1 tablet p.o. b.i.d. 3. Colace 100 mg p.o. b.i.d. 4. Coumadin 4 mg for 06/06/16, 06/07/16, and 06/08/16. The patient will have a redraw of INR on . The patient will resume her home medications of: 1. Wellbutrin 450 mg p.o. every day. 2. Ambien 5 mg p.o. at bedtime. 3. Pristiq 200 mg p.o. daily. 4. Oxybutynin 10 mg p.o. at bedtime. 5. Gabapentin 300 mg p.o. at bedtime. 6. Vitamin C 1000 mg p.o. b.i.d. DISCHARGE INSTRUCTIONS: The patient is understanding to keep her incision clean and dry until posto p day 4. At that point, she may shower normally and wash the wound with soap and water. She may ap ply a dry dressing as needed. She will be weightbearing as tolerated with a rolling walker. She wi ll have home visiting nurse for INR draws on Mondays and . She will also have home physica l therapy. She is understanding to call with any problems or concerns. She is understanding to go directly to the emergency room with any chest pain, shortness of breath, fever greater than 100.5, c chintan pain, or swelling. Dr. Landrum would like to see the patient on 06/09/16 or Thursday, . All of the patient's questions were answered to her full satisfaction. JEROME DE LA GARZA [id number]/[facility] #: [id number]
--- NOTE | 2016-11-06 16:24 | DS ---
DISCHARGE SUMMARY: DATE OF ADMISSION: 06/03/16 DATE OF DISCHARGE: 06/06/16 SURGEON: Ivanna Landrum MD. ADMITTING DIAGNOSIS: Severe endstage osteoarthritis of the left knee. DISCHARGE DIAGNOSIS: Severe endstage osteoarthritis of the left knee. HISTORY OF PRESENT ILLNESS: Ms. Schmidt is a 66-year-old female with complaints of left knee pain. She had failed conservative treatment and elected to proceed with the left total knee arthroplasty with Dr. Landrum. HOSPITAL COURSE: Ms. Schmidt is a 66-year-old female who was admitted electively to the hospital on 06/03/16 and underwent a left total knee arthroplasty. She tolerated the procedure well with no complications. Postoperatively, she was placed on Coumadin and Lovenox for DVT prophylaxis. On postop day 1, her H and H was 10 and 32. On postop day 2, her H and H was 11 and 33. On postop day 3, her H and H was 11 and 34. Her INR went from 1.01 on postop day 2 to 1.65 on the day of discharge on 06/06/16. Her hospital course was unremarkable and at the time of discharge on 06/06/16, she was afebrile and ambulating well. She was discharged home in stable condition. MEDICATIONS UPON DISCHARGE: 1. Gabapentin 300 mg three times a day. 2. Ambien 12.5 mg q.h.s.. 3. Pristiq 50 mg daily. 4. Bupropion ER daily. 5. Coumadin 2 mg. 6. Colace 100 mg 2 to 3 times a day as needed. 7. Percocet 5/325 every 4 to 6 hours as needed. PHYSICAL EXAM: Upon discharge, the incision was clean and dry. There are no signs of infection. She was ambulating well with the aid of a walker. Her lower extremity muscular strength was intact at 5/5. She has 2+ dorsalis pedis pulses and intact sensation. DISCHARGE INSTRUCTIONS: She was discharged home in stable condition. She was asked to Coumadin every night and is scheduled to come to the hospital every Thursday and for INR draw. She will participate in physical therapy twice a week at home. She is given a prescription for Percocet to take as needed for pain and she will see Dr. Landrum back in 2 weeks. JEROME SALDIVAR [id number]/[facility] #: [id number] KARO
== END 2016-06-06 17:10 | disposition home or self-care (01) | DRG 302 ==
LOC: AA 11:37 → SSU 15:53
PROVIDERS: ADMIT Orthopaedic Surgery Adult Reconstructive Orthopaedic Surgery; ATTEND Orthopaedic Surgery Adult Reconstructive Orthopaedic Surgery
PROC: 0SRD0J9 Replacement of Left Knee Joint with Synthetic Substitute, Cemented, Open Approach (ICD-10-PCS; principal; 2016-06-03 14:30)
DX: M17.12 Unilateral primary osteoarthritis, left knee (principal); F32.9 Major depressive disorder, single episode, unspecified; J98.11 Atelectasis; G89.29 Other chronic pain; E66.9 Obesity, unspecified; M54.9 Dorsalgia, unspecified; J45.20 Mild intermittent asthma, uncomplicated; Z96.651 Presence of right artificial knee joint; D72.829 Elevated white blood cell count, unspecified; R50.9 Fever, unspecified; R00.0 Tachycardia, unspecified; Z80.0 Family history of malignant neoplasm of digestive organs; Z83.3 Family history of diabetes mellitus; Z82.49 Family history of ischemic heart disease and other diseases of the circulatory system; Z68.35 Body mass index [BMI] 35.0-35.9, adult
CPT/HCPCS: 36415; 71020; 71275; 80048; 80053; 81003; 84145; 85014; 85018; 85025; 85610; 86140; 87040; 87086; 88305; 88311; 90686; 90732; 94760; A9270-GY; C1776; J0690; J1100; J1170; J1650; J1885; J2250; J2270; J2300; J2704; J2795; J3010; Q9967

== ENCOUNTER 2016-06-11 13:09 | Emergency (ER) | payer OTHER ==
--- NOTE | 2016-06-11 13:58 | ED ---
Lower Extremity - HPI Summary HPI Summary: Patient presents with left calf pain since this AM. She underwent left TKR on and since discharge has had an uneventful course. She denies injury to the left other than surgery, and has swelling in the leg consistent with her post-surgical swelling. She denies SOB, CP, dizziness or GAUTHIER. She has been working with PT. Her pain feels like a shabana-horse or cramp that won't resolve. - History of Current Complaint Chief Complaint: EDExtremityLower Stated Complaint: POSS BLOOD CLOT IN LT LEG Time Seen by Provider: 06/11/16 13:37 Hx Obtained From: Patient Mechanism Of Injury: Unknown Onset of Pain: Hours Onset/Duration: Still Present Severity Initially: Severe Severity Currently: Severe Pain Intensity: 8 Timing: Constant Location: Is Discrete @ - LLE Character Of Pain: Aching Associated Signs And Symptoms: Positive: Swelling Aggravating Factor(s): Movement Alleviating Factor(s): Nothing Able to Bear Weight: Yes - Allergies/Home Medications Allergies/Adverse Reactions: Allergies Allergy/AdvReac Type Severity Reaction Status Date / Time No Known Allergies Allergy Verified 06/03/16 12:00 PMH/Surg Hx/FS Hx/Imm Hx Endocrine/Hematology History: Denies: Hx Diabetes Cardiovascular History: Denies: Hx Hypertension, Hx Pacemaker/ICD, Other Cardiovascular Problems/ Disorders Respiratory History: Denies: Hx Asthma, Other Respiratory Problems/Disorders GI History: Denies: Other GI Disorders History: Denies: Other Problems/Disorders Musculoskeletal History: Reports: Hx Arthritis - ALL OVER, Hx Tendonitis - BOTH HANDS Sensory History: Reports: Hx Contacts or Glasses - READING GLASSES Denies: Hx Hearing Aid Opthamlomology History: Reports: Hx Contacts or Glasses - READING GLASSES Neurological History: Denies: Other Neuro Impairments/Disorders Psychiatric History: Reports: Hx Depression - MILD, ON MEDS Denies: Hx Panic Disorder - Surgical History Surgery Procedure, Year, and Place: LEFT THUMB LIGAMENT REPAIR, 2011, [facility]. RIGHT SHOULDER RTC REPAIR, 2011, [facility]. CESILIA KNEES MENISCUS REPAIR [facility] Hx Anesthesia Reactions: Yes - NAUSEA AND VOMITING Infectious Disease History: No Infectious Disease History: Denies: Hx of Known/Suspected MRSA, Traveled Outside the [place] in Last 30 Days - Social History Occupation: Retired Lives: With Family Alcohol Use: None Substance Use Type: Reports: None Smoking Status (MU): Never Smoked Tobacco Have You Smoked in the Last Year: No Review of Systems Negative: Fever, Chills Negative: Chest Pain Negative: Shortness Of Breath Positive: Myalgia, Decreased ROM, Edema Positive: Bruising - due to surgery All Other Systems Reviewed And Are Negative: Yes Physical Exam Triage Information Reviewed: Yes Vital Signs On Initial Exam: Initial Vitals Temp Pulse Resp BP Pulse Ox 98.8 F 117 20 131/57 97 06/11/16 13:12 06/11/16 13:12 06/11/16 13:12 06/11/16 13:12 06/11/16 13:12 Vital Signs Reviewed: Yes Appearance: Positive: Well-Appearing, Pain Distress, Obese Skin: Positive: Warm, Skin Color Reflects Adequate Perfusion, Dry, Tender, Soft , Erythema @ - mild enduration consistent with suture irritation over TKR incision Head/Face: Positive: Normal Head/Face Inspection Eyes: Positive: EOMI, HEENA, Conjunctiva Clear ENT: Positive: Hearing grossly normal Respiratory/Lung Sounds: Positive: Clear to Auscultation, Breath Sounds Present Cardiovascular: Positive: Tachycardia Musculoskeletal: Positive: Limited @ - knee extension to 10, flex to 70, Pain @ - TTP left calf, Edema Left - knee- due to surgical changes, calf swelling is hard to assess Neurological: Positive: Sensory/Motor Intact, Alert, Oriented to Person Place, Time, NV Bundle Intact Distally Psychiatric: Positive: Affect/Mood Appropriate AVPU Assessment: Alert Diagnostics - Vital Signs Vital Signs Temp Pulse Resp BP Pulse Ox 06/11/16 13:12 98.8 F 117 20 131/57 97 - Laboratory Lab Statement: Any lab studies that have been ordered have been reviewed, and results considered in the medical decision making process. - Ultrasound No standard instances Ultrasound Interpretation: Positive (See Comments) Ultrasound Interpretation Completed By: Radiologist - LLE occlusive thrombus of the posterior tibial vein Lower Extremity Course/Dx - Course Course Of Treatment: I spoke with Dr. Landrum's office to confirm patient's discharge dose of warfarin at 4mg. I will discharge her with instructions to increase to 8mg and call her PCP and Dr. Landrum's office tomorrow for instructions. - Diagnoses Differential Diagnosis/HQI/PQRI: Positive: Arthritis, Bursitis, Cellulitis, Compartment Syndrome, DVT, Infection, Sprain, Strain Provider Diagnoses: Acute deep vein thrombosis (DVT) of left tibial vein Discharge - Discharge Plan Condition: Stable Disposition: HOME Patient Education Materials: Leg Edema (ED) Referrals: Didi Torres MD [Primary Care Provider] - Additional Instructions: Please call your PCP for evaluation and instructions regarding DVT management. Call Dr. Landrum's office to see if they have recommendations regarding your new diagnosis. Tonight take 8mg of warfarin-- this will be 4 of your 2mg tablets. Your should receive further instructions from orthopedics tomorrow, and if your don't hear from them by 4pm, please call their office. Make sure to ice, elevate , flex and extend your knee. Return to the emergency department if your symptoms worsen.
--- NOTE | 2016-06-11 14:42 | RAD ---
HISTORY: Left lower extremity pain COMPARISONS: None relevant TECHNIQUE: Multiple transverse and longitudinal ultrasound images were obtained of the left lower extremity from the level of the common femoral vein inferiorly through to the infrapopliteal veins using grayscale, color Doppler, and spectral Doppler imaging with and without compression and with augmentation. Comparison images were obtained of the contralateral common femoral vein. FINDINGS: VEINS: There is occlusive thrombus within the posterior tibial veins of the left lower extremity, without extension to the popliteal or supra popliteal venous system. The remainder of the venous system of the left lower extremity is compressible throughout its course, with normal flow on color Doppler imaging and normal response to augmentation on spectral Doppler imaging. SOFT TISSUES: Unremarkable. OTHER FINDINGS: None. IMPRESSION: CALF VEIN THROMBUS WITHOUT EXTENSION TO THE POPLITEAL OR SUPRAPOPLITEAL DEEP VENOUS SYSTEM
[2016-06-11] MEDS ORDERED: oxyCODONE/Acetamin 5/325 MG* TAB PO ONE (14:59)
[2016-06-11 16:45] VITALS: BP 113/60
== END 2016-06-11 16:43 | disposition home or self-care (01) ==
LOC: ED 13:09
DX: I82.442 Acute embolism and thrombosis of left tibial vein (principal); M79.605 Pain in left leg; R60.9 Edema, unspecified
CPT/HCPCS: 36415; 85610; 99282; A9270-GY

== ENCOUNTER 2016-06-29 08:29 | Emergency (ER) | payer OTHER ==
[2016-06-29] MEDS ORDERED: oxyCODONE/Acetamin 5/325 MG* TAB PO ONE (09:12)
--- NOTE | 2016-06-29 09:18 | ED ---
HPI Cardiac - HPI Summary HPI Summary: Pt present w/ new onset sharp chest pain this morning - was about to eat breakfast when she noticed this. Lasted 15 minutes then reduced in severity but still present. Denies associated sx of nausea, vomiting, diaphoresis, radiating Lt arm and jaw pain, GAUTHIER, back pain, shortness of breath, cough/hemoptysis. She is 1 month s/p Lt TKR and was placed on coumadin for DVT prophylaxis. Unfortunately, she developed a DVT 1 week after surgery in Lt LE. Has been taking 5mg coumadin and is supposed to check w/ [facility] this week for recheck of INR - last INR lab was 1 week ago. She has persistent pain in Lt calf which she's had since DVT dx and Left knee pain since surgery. Hamstring on this side is bothering her today - not sure if she worked it too much in PT or not? N/o h/o GERD, asthma, pneumonia, CVD, injury to chest pain. - History of Current Complaint Hx Obtained From: Patient Pain Intensity: 7 - Additional Pertinent History Primary Care Physician: [id number] <Melissa Castellanos - Last Filed: 07/10/16 11:21> <Cathie Osman - Last Filed: 07/13/16 09:29> - History of Current Complaint Chief Complaint: EDChestPainROMI Stated Complaint: CHEST PAIN Time Seen by Provider: 06/29/16 08:49 - Allergy/Home Medications Allergies/Adverse Reactions: Allergies Allergy/AdvReac Type Severity Reaction Status Date / Time No Known Allergies Allergy Verified 06/03/16 12:00 Home Medications: Home Medications Warfarin TAB(*) [Coumadin TAB(*)] 5 mg PO SEE INSTRUCTIONS 06/29/16 [History Confirmed 06/29/16] PMH/Surg Hx/FS Hx/Imm Hx Previously Healthy: Yes Endocrine/Hematology History: Reports: Hx Anticoagulant Therapy - coumadin for DVT tx of LLE s/p TKR Denies: Hx Diabetes, Hx Anemia, Hx Unexplained Bleeding, Autoimmune Disease Cardiovascular History: Reports: Hx Deep Vein Thrombosis - currently 06/29/2016 Denies: Hx Aneurysm, Hx Angina, Hx Cardiac Arrest, Hx Congenital Heart Disease, Hx Congestive Heart Failure, Hx Hypertension, Hx Myocardial Infarction , Hx Pacemaker/ICD, Hx Valvular Heart Disease, Other Cardiovascular Problems/ Disorders Respiratory History: Denies: Hx Asthma, Hx Chronic Bronchitis, Hx Chronic Obstructive Pulmonary Disease (COPD), Hx Pneumonia, Hx Pulmonary Embolism, Other Respiratory Problems/ Disorders GI History: Denies: Hx Diverticulosis, Hx Gall Bladder Disease, Hx Gastroesophageal Reflux Disease, Hx Hiatal Hernia, Hx Irritable Bowel, Other GI Disorders History: Denies: Other Problems/Disorders Musculoskeletal History: Reports: Hx Arthritis - ALL OVER, Hx Tendonitis - BOTH HANDS Sensory History: Reports: Hx Contacts or Glasses - READING GLASSES Denies: Hx Hearing Aid Opthamlomology History: Reports: Hx Contacts or Glasses - READING GLASSES Neurological History: Denies: Other Neuro Impairments/Disorders Psychiatric History: Reports: Hx Depression - MILD, ON MEDS Denies: Hx Panic Disorder - Surgical History Surgery Procedure, Year, and Place: LEFT THUMB LIGAMENT REPAIR, 2011, [facility]. RIGHT SHOULDER RTC REPAIR, 2011, [facility]. 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 Negative: Palpitations Negative: Shortness Of Breath, Cough Gastrointestinal: Negative Positive: no symptoms reported Musculoskeletal: Other - see HPI Negative: Rash, Bruising Neurological: Negative Psychological: Normal All Other Systems Reviewed And Are Negative: Yes <Melissa Castellanos - Last Filed: 07/10/16 11:21> Physical Exam Triage Information Reviewed: Yes Vital Signs On Initial Exam: Initial Vitals Temp Pulse Resp BP Pulse Ox 96.0 F 88 16 135/83 99 06/29/16 08:30 06/29/16 08:30 06/29/16 08:30 06/29/16 08:30 06/29/16 08:30 Vital Signs Reviewed: Yes Appearance: Positive: Well-Appearing, No Pain Distress, Well-Nourished Skin: Positive: Warm, Dry - no erythema, no ecchymosis over chest nor LLE although does have a healing vertical surgical scar over anterior knee Head/Face: Positive: Normal Head/Face Inspection Eyes: Positive: Normal, EOMI, HEENA, Conjunctiva Clear - anicteric ENT: Positive: Hearing grossly normal, Pharynx normal - mucosa somewhat dry Neck: Positive: Supple, Nontender Respiratory/Lung Sounds: Positive: Clear to Auscultation, Breath Sounds Present. Negative: Rales, Rhonchi, Subcutaneous Emphysema, Stridor, Tracheal Deviation, Wheezes Cardiovascular: Positive: Normal, RRR, S1, S2. Negative: Murmur, Rub, Leg Edema Left - + Homans Lt calf and tenderness over Lt knee as well as hamstring, Leg Edema Right Abdomen Description: Positive: Nontender, No Organomegaly, Soft Bowel Sounds: Positive: Present Musculoskeletal: Positive: Pain @ - Lt knee - limited ROM w/ flexion d/t pain and swelling but strength is intact; Chest, neck and shoulders NTTP - FROM w/o pain Neurological: Positive: Normal, Sensory/Motor Intact, Alert, Oriented to Person Place, Time, CN Intact II-III Psychiatric: Positive: Normal <Melissa Castellanos - Last Filed: 07/10/16 11:21> Vital Signs On Initial Exam: Initial Vitals Temp Pulse Resp BP Pulse Ox 96.0 F 88 16 135/83 99 06/29/16 08:30 06/29/16 08:30 06/29/16 08:30 06/29/16 08:30 06/29/16 08:30 <Cathie Osman - Last Filed: 07/13/16 09:29> Diagnostics - Vital Signs Vital Signs Temp Pulse Resp BP Pulse Ox 06/29/16 08:45 73 14 98 06/29/16 08:43 127/73 06/29/16 08:30 96.0 F 88 16 135/83 99 - Laboratory Result Diagrams: 06/29/16 08:55 06/29/16 08:55 Lab Statement: Any lab studies that have been ordered have been reviewed, and results considered in the medical decision making process. <Melissa Castellanos - Last Filed: 07/10/16 11:21> - Vital Signs Vital Signs Temp Pulse Resp BP Pulse Ox 06/29/16 14:18 98.9 F 85 16 113/59 06/29/16 13:00 73 13 95 06/29/16 12:00 72 15 114/72 97 06/29/16 11:30 67 17 105/71 97 06/29/16 11:05 74 14 112/68 92 06/29/16 11:00 68 15 94 06/29/16 10:00 75 18 91 06/29/16 09:55 71 17 103/65 95 06/29/16 09:00 82 15 120/72 99 06/29/16 08:45 73 14 98 06/29/16 08:43 127/73 06/29/16 08:30 96.0 F 88 16 135/83 99 - Laboratory Lab Results: Lab Results 06/29/16 06/29/16 06/29/16 Range/Units 08:55 08:55 08:55 WBC 5.2 (3.5-10.8) 10^3/ul RBC 3.92 L (4.0-5.4) 10^6/ul Hgb 11.3 L (12.0-16.0) g/dl Hct 35 (35-47) % MCV 89 (80-97) fL MCH 29 (27-31) pg MCHC 33 (31-36) g/dl RDW 14 (10.5-15) % Plt Count 354 (150-450) 10^3/ul MPV 8 (7.4-10.4) um3 Neut % (Auto) 61.9 (38-83) % Lymph % (Auto) 26.1 (25-47) % Moca % (Auto) 8.4 (1-9) % Eos % (Auto) 1.6 (0-6) % Baso % (Auto) 2.0 (0-2) % Absolute Neuts (auto) 3.2 (1.5-7.7) 10^3/ul Absolute Lymphs (auto) 1.3 (1.0-4.8) 10^3/ul Absolute Monos (auto) 0.4 (0-0.8) 10^3/ul Absolute Eos (auto) 0.1 (0-0.6) 10^3/ul Absolute Basos (auto) 0.1 (0-0.2) 10^3/ul Absolute Nucleated RBC 0 10^3/ul Nucleated RBC % 0 INR (Anticoag Therapy) (0.89-1.11) APTT (26.0-36.3) seconds Sodium 134 (133-145) mmol/L Potassium 4.0 (3.5-5.0) mmol/L Chloride 99 L (101-111) mmol/L Carbon Dioxide 29 (22-32) mmol/L Anion Gap 6 (2-11) mmol/L BUN 16 (6-24) mg/dL Creatinine 0.80 (0.51-0.95) mg/dL Est GFR ( Amer) 92.9 (>60) Est GFR (Non-Af Amer) 72.2 (>60) BUN/Creatinine Ratio 20.0 (8-20) Glucose 99 (70-100) mg/dL Lactic Acid 1.4 (0.5-2.0) mmol/L Calcium 9.0 (8.6-10.3) mg/dL Magnesium 1.9 (1.9-2.7) mg/dL Total Bilirubin 0.40 (0.2-1.0) mg/dL AST 16 (13-39) U/L ALT 16 (7-52) U/L Alkaline Phosphatase 87 (34-104) U/L Troponin I 0.00 (<0.04) ng/mL Total Protein 7.1 (6.4-8.9) g/dL Albumin 3.6 (3.2-5.2) g/dL Globulin 3.5 (2-4) g/dL Albumin/Globulin Ratio 1.0 (1-3) TSH 2.14 (0.34-5.60) mcIU/mL 06/29/16 06/29/16 Range/Units 08:55 12:20 WBC (3.5-10.8) 10^3/ul RBC (4.0-5.4) 10^6/ul Hgb (12.0-16.0) g/dl Hct (35-47) % MCV (80-97) fL MCH (27-31) pg MCHC (31-36) g/dl RDW (10.5-15) % Plt Count (150-450) 10^3/ul MPV (7.4-10.4) um3 Neut % (Auto) (38-83) % Lymph % (Auto) (25-47) % Moca % (Auto) (1-9) % Eos % (Auto) (0-6) % Baso % (Auto) (0-2) % Absolute Neuts (auto) (1.5-7.7) 10^3/ul Absolute Lymphs (auto) (1.0-4.8) 10^3/ul Absolute Monos (auto) (0-0.8) 10^3/ul Absolute Eos (auto) (0-0.6) 10^3/ul Absolute Basos (auto) (0-0.2) 10^3/ul Absolute Nucleated RBC 10^3/ul Nucleated RBC % INR (Anticoag Therapy) 2.46 H (0.89-1.11) APTT 43.5 H (26.0-36.3) seconds Sodium (133-145) mmol/L Potassium (3.5-5.0) mmol/L Chloride (101-111) mmol/L Carbon Dioxide (22-32) mmol/L Anion Gap (2-11) mmol/L BUN (6-24) mg/dL Creatinine (0.51-0.95) mg/dL Est GFR ( Amer) (>60) Est GFR (Non-Af Amer) (>60) BUN/Creatinine Ratio (8-20) Glucose (70-100) mg/dL Lactic Acid (0.5-2.0) mmol/L Calcium (8.6-10.3) mg/dL Magnesium (1.9-2.7) mg/dL Total Bilirubin (0.2-1.0) mg/dL AST (13-39) U/L ALT (7-52) U/L Alkaline Phosphatase (34-104) U/L Troponin I 0.00 (<0.04) ng/mL Total Protein (6.4-8.9) g/dL Albumin (3.2-5.2) g/dL Globulin (2-4) g/dL Albumin/Globulin Ratio (1-3) TSH (0.34-5.60) mcIU/mL Result Diagrams: 06/29/16 08:55 06/29/16 08:55 Lab Statement: Any lab studies that have been ordered have been reviewed, and results considered in the medical decision making process. 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 Non-reproducible. Concerned as she was recently dx' d w/ a DVT in LLE s/p TKR here 1 month ago. Has been taking coumadin - last INR 1 week ago but not sure of level. Denies fever, chills, diaphoresis, SOB, weakness, N/V/D. signs of bleeding. No h/o "indigestion" nor cardiac issues. ECG WNL and same as ECG prior to surgery. Troponins 0.00 x 2. CXR w/o acute cardiopulm findings. CTA w/o PE however report states she has been "interval development of minimal Lt upper lobe airspace dz - reflects infectious or possibly non-infectious/inflammatory process". Pt is afebrile, WBC's WNL as are lactic acid level and CRP. Vitals are WNL during course of stay. After reviewing with Dr. Osman, pt will be d/c'd w/o additional tx today however advised follow-up tomorrow w/ PCP. Pt agrees w/ plan. Also reviewed danger s/sx of when to return to ED. - Physician Notifications Discussed Care Of Patient With: Dr. Osman <Melissa Castellanos - Last Filed: 07/10/16 11:21> <Cathie Osman - Last Filed: 07/13/16 09:29> - Diagnoses Provider Diagnoses: Chest pain of unknown etiology Discharge <Melissa Castellanos - Last Filed: 07/10/16 11:21> <Cathie Osman - Last Filed: 07/13/16 09:29> - Discharge Plan Condition: Stable Disposition: HOME Patient Education Materials: Chest Pain (ED), Chest Wall Pain (ED) Referrals: Didi Torres MD [Primary Care Provider] - Additional Instructions: The cause of your chest pain today could be from muscle strain. It was determined this was not triggered by cardiac pathology or lung pathology from tests performed today. It is important however that you follow-up with your PCP this week - call tomorrow to schedule an appointment. *If you develop worsening of chest pain and/or fever, chills, shortness of breath, bloody cough, back pain, headache, change in vision, vomiting, diarrhea , abdominal pain return to ED Attestations User Type: Provider - I was available for consult. This patient was seen by the advanced practice provider. The patient was not seen by or examined by me. - GRACIE <Cathie Osman - Last Filed: 07/13/16 09:29>
[2016-06-29 09:25] LABS: Hematocrit 35 % (35-47); Hemoglobin 11.3 g/dl (12.0-16.0); Mean Corpuscular HGB Conc 33 g/dl (31-36); Mean Corpuscular Hemoglobin 29 pg (27-31); Mean Corpuscular Volume 89 fL (80-97); Mean Platelet Volume 8 um3 (7.4-10.4); Red Blood Count 3.92 10^6/ul (4.0-5.4); Red Cell Distribution Width 14 % (10.5-15); White Blood Count 5.2 10^3/ul (3.5-10.8)
[2016-06-29 09:42] LABS: Albumin 3.6 g/dL (3.2-5.2); EGFR African American 92.9 (>60); EGFR Non-African American 72.2 (>60); Globulin 3.5 g/dL (2-4); Magnesium 1.9 mg/dL (1.9-2.7); Total Bilirubin 0.4 mg/dL (0.2-1.0); Total Protein 7.1 g/dL (6.4-8.9)
--- NOTE | 2016-06-29 09:43 | RAD ---
HISTORY: Chest pain COMPARISONS: June 05, 2016 VIEWS: 2: Frontal dual-energy and lateral views of the chest. FINDINGS: CARDIOMEDIASTINAL SILHOUETTE: The cardiomediastinal silhouette is normal. ELICIA: The elicia are normal. PLEURA: The costophrenic angles are sharp. No pleural abnormalities are noted. LUNG PARENCHYMA: There is hyperinflation with flattening of the diaphragm and expansion of the AP diameter of the chest. ABDOMEN: The upper abdomen is clear. There is no subphrenic gas. BONES AND SOFT TISSUES: No bone or soft tissue abnormalities are noted. OTHER: None. IMPRESSION: HYPERINFLATION. NO ACTIVE CARDIOPULMONARY DISEASE.
[2016-06-29 09:53] LABS: TSH (Thyroid Stimulating Horm) 2.14 mcIU/mL (0.34-5.60)
[2016-06-29] MEDS ORDERED: Iohexol 350* (CONTRAST) 500 ML MDV IV ONE (10:23)
--- NOTE | 2016-06-29 10:44 | RAD ---
HISTORY: DVT with new onset right-sided chest pain COMPARISONS: June 06, 2016 TECHNIQUE: Multiple contiguous axial CT scans of the chest were obtained after the administration of nonionic intravenous contrast, timed to the pulmonary arterial phase of contrast enhancement.. Coronal and sagittal multiplanar reformations are also submitted for review. FINDINGS: NECK AND THYROID: The lower neck and thyroid are unremarkable. CHEST WALL: There is no lower cervical, axillary, or supraclavicular lymphadenopathy by size criteria. HEART AND PERICARDIUM: The heart is unremarkable. AORTA AND PULMONARY VASCULATURE: There is no pulmonary arterial filling defect to suggest pulmonary embolism. There is no linear filling defect within the aorta to suggest aortic dissection. MEDIASTINUM: There is no mediastinal lymphadenopathy by size criteria. ELICIA: There is no hilar lymphadenopathy by size criteria. AIRWAY AND ESOPHAGUS: The airway is unremarkable, without endobronchial filling defect. The esophagus is grossly normal. LUNG PARENCHYMA: There has been interval development of patchy ground less opacification of the left upper lobe along the fissure. There is minimal dependent atelectasis bilaterally with stable linear atelectasis versus pleuroparenchymal scarring. PLEURA: No pleural abnormalities are noted. UPPER ABDOMEN: There is fatty infiltration of the liver BONES AND SOFT TISSUES: Degenerative changes are noted of the spine OTHER: None. IMPRESSION: 1. NO PULMONARY ARTERIAL FILLING DEFECT TO SUGGEST PULMONARY EMBOLISM. 2. THERE IS BEEN INTERVAL DEVELOPMENT OF MINIMAL AIRSPACE DISEASE OF THE LEFT UPPER LOBE. GIVEN THE CHANGE FROM THE RECENT PREVIOUS EXAMINATION, THIS LIKELY REFLECTS AN INFECTIOUS OR POSSIBLY NONINFECTIOUS/INFLAMMATORY PROCESS.
[2016-06-29 14:24] VITALS: BP 113/59
== END 2016-06-29 14:18 | disposition home or self-care (01) ==
LOC: ED 08:29
DX: R07.9 Chest pain, unspecified (principal)
CPT/HCPCS: 36415; 71020; 71275; 80053; 83605; 83735; 84443; 84484; 85025; 85610; 85730; 87040; 99283; A9270-GY; Q9967

== ENCOUNTER 2021-07-07 09:49 | Observation (INO) ==
[2021-07-07] MEDS ORDERED: Ondansetron 4 mg VIAL 2 MG/ML 2 ml VIAL IV ONE ×2 (10:13→15:32)
[2021-07-07] MEDS ORDERED: Lactated Ringers 1000 ml BAG 1,000 ML IV ONE (10:14)
[2021-07-07 11:27] LABS: INR 1.12 (0.86-1.15)
[2021-07-07 11:32] LABS: ALT 17 U/L (7-52); Albumin 4.2 g/dL (3.2-5.2); Albumin/Globulin Ratio 1.3 (1-3); Alkaline Phosphatase 81 U/L (35-149); Blood Urea Nitrogen 18 mg/dL (6-24); C Reactive Protein 2.89 mg/L (<8.01); CO2 Carbon Dioxide 24 mmol/L (22-32); Calcium 9.5 mg/dL (8.6-10.3); Chloride 102 mmol/L (101-111); Globulin 3.3 g/dL (2-4); Glucose 99 mg/dL (70-100); Lipase 17 U/L (11.0-82.0); Sodium 138 mmol/L (135-145); Total Protein 7.5 g/dL (6.4-8.9); eGFR CKD-EPI 83.5 (>60)
[2021-07-07 11:36] LABS: ABS Lymphocytes 1.6 10^3/ul (1.0-4.8); ABS Monocytes 0.6 10^3/ul (0-0.8); ABS Neutrophils 7.8 10^3/ul (1.5-7.7); Eosinophil % 0.1 %; Hematocrit 46 % (35-47); Hemoglobin 15.3 g/dL (12.0-16.0); Lymphocyte % 15.5 %; Mean Corpuscular HGB Conc 33 g/dL (31-36); Mean Corpuscular Hemoglobin 31 pg (27-31); Mean Corpuscular Volume 93 fL (80-97); Mean Platelet Volume 8.1 fL (7.4-10.4); Nucleated Red Blood Cells % 0.1; Platelet Count 331 10^3/uL (150-450); Red Blood Count 4.94 10^6 /uL (3.70-4.87); Red Cell Distribution Width 13 % (10-15)
[2021-07-07] MEDS ORDERED: Iohexol 300 (CONTRAST) 10 ML SDV IV ONE (11:37)
[2021-07-07 12:09] LABS: Anion Gap 12 mmol/L (2-11)
[2021-07-07] MEDS ORDERED: Al Hydrox/Mg Hydrox/Simet LIQ 30 ML UDC PO ONE (13:01)
[2021-07-07 13:40] LABS: Magnesium 1.8 mg/dL (1.9-2.7)
[2021-07-07] MEDS ORDERED: Famotidine IV 10 MG/ML 2 ml VIAL (20 mg) IV SLOW PU ONE (15:00)
[2021-07-07 15:38] LABS: Urine Appearance Clear; Urine Bilirubin Negative (Negative); Urine Blood Negative (Negative); Urine Color Yellow; Urine Glucose Negative (Negative); Urine Ketones 2+ (Negative); Urine Nitrite Negative (Negative); Urine Protein Negative (Negative); Urine Specific Gravity 1.057 (1.002-1.030); Urine Urobilinogen Negative (Negative)
[2021-07-07 16:12] LABS: Potassium Redraw 3.7 mmol/L (3.5-5.0)
[2021-07-07 16:46] LABS: PCO2 Arterial 38 mmHg (35-45); PO2 Arterial 69 mmHg (80-100)
[2021-07-07] MEDS ORDERED: Iohexol 350 (CONTRAST) 500 ML MDV IV ONE (17:53)
[2021-07-07 19:00] LABS: Troponin I 0.01 ng/mL (<0.03)
[2021-07-07] MEDS ORDERED: Metoclopramide 5 MG/ML VIAL (10 mg) IV SLOW PU ONE (21:02)
[2021-07-07] MEDS ORDERED: diPHENhydraMINE IV 50 MG/ML 1 ml VIAL (BENADRYL) IV ONE (21:02)
[2021-07-07] MEDS ORDERED: Enoxaparin 40 MG/0.4 ML SYR SUBCUT SCH (22:00)
[2021-07-08] MEDS ORDERED: Ondansetron 4 mg VIAL 2 MG/ML 2 ml VIAL IV PRN (05:00)
[2021-07-08] MEDS ORDERED: Metoclopramide 5 MG/ML VIAL (10 mg) IV PRN (06:00)
[2021-07-08 10:14] VITALS: BP 147/75
== END 2021-07-08 17:20 | disposition home or self-care (01) ==
LOC: ED 09:49 → EDHOLD 23:27 → SUATTDRO 23:27 → INTOOBSV 23:27 → MED 07-08 04:33
PROVIDERS: ADMIT Student in an Organized Health Care Education/Training Program; ATTEND Student in an Organized Health Care Education/Training Program

== ENCOUNTER 2022-04-29 06:49 | Observation (INO) ==
[~2022-04-29 06:49] MED LIST changes: -Buffered Lidocaine 1% SYR 3ML* 3 ML/SYR SYRINGE INTRADERM ONE; +Buffered Lidocaine 1% SYRIN 1 ml INTRADERM ONE; -Bupivacaine 0.5% SDV PF* 30 ML VIAL ONE; -Dexamethasone IV* 4 MG/ML 1 ML (4 MG) IV SLOW PU ONE; -Dexmedetomidine* 200 MCG/2 ML 2 ML VIAL ONE; -Famotidine IV* 10 MG/ML 2 ML (20 mg) IV ONE; +Lactated Ringers 1000 ml BAG 1,000 ML IV SCH; -Midazolam* 1 MG/ML 5 ML VIAL (5 MG) ONE; -Morphine PF AMP (0.5MG/ML)* 5 MG/10 ML AMP ONE; +Naloxone 0.4 mg VIAL 0.4 mg/ml 1 ml VIAL IV PRN; +Ondansetron 4 mg VIAL 2 MG/ML 2 ml VIAL IV PRN; -Propofol* 10 MG/ML 20 ML BTL IV PUSH ONE; -ROPIVACAINE 5 MG/ML 30 ML BTL (0.5%) ONE; +fentaNYL 100 mcg/2 ml 50 MCG/ML VIAL IV PRN; -fentaNYL* 50 MCG/ML 2 ML VIAL (100 MCG VIAL) ONE
[2022-04-29] MEDS ORDERED: ceFAZolin 2 GM PREMIX 2 GM/50 ML BAG ONE (07:12)
[2022-04-29 07:25] LABS: Hematocrit 39 % (35-47); Hemoglobin 12.8 g/dL (12.0-16.0); Mean Corpuscular HGB Conc 33 g/dL (31-36); Mean Corpuscular Hemoglobin 30 pg (27-31); Mean Corpuscular Volume 92 fL (80-97); Mean Platelet Volume 7.5 fL (7.4-10.4); Platelet Count 278 10^3/uL (150-450); Red Blood Count 4.24 10^6 /uL (3.70-4.87); Red Cell Distribution Width 14 % (10-15); White Blood Count 5.9 10^3/uL (3.5-10.8)
[2022-04-29 07:35] LABS: INR 0.95 (0.88-1.18)
[2022-04-29] MEDS ORDERED: Midazolam 2 mg/2 ml VIAL 1 mg/ml 2 ml VIAL (2 mg) ONE (08:45)
[2022-04-29] MEDS ORDERED: Dexamethasone IV 4 MG/ML VIAL 1 ml VIAL ONE ×2 (08:45→10:55)
[2022-04-29] MEDS ORDERED: Lidocaine 2% PF 5 ML VIAL ONE ×2 (08:45→09:38)
[2022-04-29] MEDS ORDERED: Bupivacaine 0.5% SDV PF 30ML VIAL ONE (08:45)
[2022-04-29] MEDS ORDERED: ROPIVACAINE 5 MG/ML 30 ML BTL (0.5%) ONE (08:56)
[2022-04-29] MEDS ORDERED: Phenylephrine IV 10 MG/ML 1 ml VIAL ONE (09:07)
[2022-04-29] MEDS ORDERED: fentaNYL 100 mcg/2 ml 50 MCG/ML VIAL ONE (09:25)
[2022-04-29] MEDS ORDERED: Ondansetron 4 mg VIAL 2 MG/ML 2 ml VIAL ONE (10:55)
[2022-04-29] MEDS ORDERED: Propofol 10 MG/ML 20 ML BTL ONE (10:55)
[2022-04-29] MEDS ORDERED: Magnesium Hydroxide LIQ 30 ML UDC PO PRN (12:09)
[2022-04-29] MEDS ORDERED: Lactulose 30 ml UDC PO PRN (12:09)
[2022-04-29] MEDS ORDERED: Ondansetron ODT 4 mg TAB 4 MG TAB PO PRN (12:09)
[2022-04-29] MEDS ORDERED: Morphine 2 MG/ML SYRINGE IV PRN (12:09)
[2022-04-29] MEDS ORDERED: Ondansetron 4 mg VIAL 2 MG/ML 2 ml VIAL IV PRN (12:09)
[2022-04-29] MEDS ORDERED: Albuterol HFA INHALER 8 gm MDI INH PRN (14:38)
[2022-04-29] MEDS: Lactated Ringers 1000 ml BAG 1,000 ML IV SCH (15:05)
[2022-04-29] MEDS: ceFAZolin 1 GM ADVAN 1 GM in NS 0.9% 50 ML 50 ML IVPB SCH (17:36)
[2022-04-29] MEDS: Magnesium Hydroxide LIQ 30 ML UDC PO SCH (21:13)
[2022-04-30] MEDS: ceFAZolin 1 GM ADVAN 1 GM in NS 0.9% 50 ML 50 ML IVPB SCH ×2 (02:01→10:16)
[2022-04-30] MEDS: Lactated Ringers 1000 ml BAG 1,000 ML IV SCH (06:05)
[2022-04-30 06:36] LABS: Hematocrit 33 % (35-47); Hemoglobin 10.7 g/dL (12.0-16.0); Mean Platelet Volume 7.5 fL (7.4-10.4); Platelet Count 221 10^3/uL (150-450)
[2022-04-30 07:34] LABS: Calcium 8.1 mg/dL (8.6-10.3); Potassium 4.5 mmol/L (3.5-5.0); eGFR CKD-EPI 71.6 (>60)
[2022-04-30] MEDS ORDERED: CMC:Desvenlafaxine 50 mg TAB (NF) PO SCH (09:00)
[2022-04-30] MEDS ORDERED: Vitamin THERAPEUTIC TAB PO SCH (09:00)
[2022-04-30] MEDS: Magnesium Hydroxide LIQ 30 ML UDC PO SCH (10:19)
[2022-04-30 11:11] VITALS: BP 122/75
== END 2022-04-30 13:00 | disposition home or self-care (01) ==
LOC: INTOOBSV 06:49 → AA 06:49 → SSU 12:10
PROVIDERS: ADMIT Orthopaedic Surgery Adult Reconstructive Orthopaedic Surgery; ATTEND Orthopaedic Surgery Adult Reconstructive Orthopaedic Surgery